=== PATIENT | male | born 1950 | race Caucasian/White ===

== ENCOUNTER 2017-07-08 22:42 | Inpatient (IN) ==
[2017-07-09] MEDS ORDERED: *HR* Heparin 5,000 UNIT/ML VIAL IVP PRN ×2 (01:14)
[2017-07-09] MEDS ORDERED: Acetaminophen 325 MG TABLET PO PRN (01:14)
[2017-07-09] MEDS ORDERED: Naloxone 0.4 MG/ML INJ IVP PRN (01:14)
[2017-07-09] MEDS ORDERED: traMADol 50 MG TABLET PO PRN (01:14)
[2017-07-09] MEDS ORDERED: *HR* Heparin 5,000 UNIT/ML VIAL IVP ONE (01:14)
[2017-07-09] MEDS ORDERED: Heparin 25,000 UNIT/500 ML D5W 25,000 UNIT/500 ML BAG IVC SCH (01:15)
[2017-07-09] MEDS ORDERED: Ipratropium/Albuterol Neb 3 ML IH PRN (01:26)
--- NOTE | 2017-07-09 01:45 | Internal Med History&Physical ---
Date of Encounter: 07/09/17 Time of Encounter: 00:45 Assessment and Plan (1) Pulmonary embolism Current visit: Yes Status: Acute CTA shows PE supplying the proximal divisions of the right upper, middle, and lower lobes. Also mentions diffuse emphysema BNP normal. CBC does show a leukocytosis of 18.6, no anemia. BMP unremarkable. Kidney function appears at baseline Patient denies any chest pain. Initial troponin negative Etiology of PE unclear - will order hypercoagulable panel work-up Patient was started on a heparin drip in the emergency department, we will continue this for now Continue to assess for bleeding. DuoNeb's as needed We will check echocardiogram to evaluate for right heart strain Qualifiers: Pulmonary embolism type: other Chronicity: acute Acute cor pulmonale presence: without acute cor pulmonale Qualified Code(s): I26.99 - Other pulmonary embolism without acute cor pulmonale (2) Hypertension Current visit: Yes Status: Acute Normotensive now. Home meds have not been confirmed, therefore will place on PRN hydralazine Qualifiers: Hypertension type: essential hypertension Qualified Code(s): I10 - Essential (primary) hypertension (3) DVT prophylaxis Current visit: Yes Status: Acute On heparin drip Internal Medicine - H&P: HPI Chief complaint: Dyspnea Admitted From: Emergency Dept History of present illness: Mr. Cherry is a 67 year old male with past medical history of hypertension and asthma, who presented to the emergency department at the request of his primary care physician after finding an elevated d-dimer 5334. The patient reports that he has been feeling short of breath and had a nonproductive cough since November 2016, but this acutely worsened over the past week. He reports an episode last night where he was having palpitations, heavy breathing, chills, and diaphoresis. These symptoms subsided after several minutes. He states his breathing has been worse with exertion. He has tried nebulizers and Advair with minimal relief. He denies hemoptysis, extremity edema, or tenderness in his extremities. He denies fevers, syncope, lightheadedness, chest pain, pleuritic pain, abdominal pain, nausea, vomiting, change in bowels, hematochezia , melena, dysuria, or hematuria. He denies any prolonged immobility, recent surgery, travel, previous clots/clotting disorders, FH of clotting disorders, or active malignancy. He does have cardiac risk factors with history of hypertension, former tobacco use, and family history of heart disease. Past Med Surg Social Fam HX - Past Medical History Medical history: asthma, hypertension Psychiatric history: no psych history - Social History Smoking Status: Former smoker Smokeless Tobacco Status: No Alcohol use: none Drug use: none Internal Medicine - H&P: Meds Albuterol Sulfate [Albuterol Inhaler] 1 puff IH Q4-6H PRN 05/30/17 [History] Metoprolol [Lopressor] 50 mg PO DAILY 05/30/17 [History] Mometasone/Formoterol [Dulera 100 Mcg/5 Mcg Inhaler] 2 inh IH BID 05/30/17 [ History] Potassium Chloride [Klor-Con Sprinkle] 10 meq PO Q48H 05/30/17 [History] hydroCHLOROthiazide [Hydrochlorothiazide] 25 mg PO DAILY 05/30/17 [History] 3 Allergy/AdvReac Type Severity Reaction Status Date / Time amlodipine Allergy Hives Verified 05/30/17 19:40 Benzonatate AdvReac Redness of Verified 05/30/17 19:40 Skin All Systems PM: A 10-system review of systems was performed and is negative for pertinent findings except as documented above in the HPI. - Constitutional Vitals: Temp Pulse Resp BP Pulse Ox 99.8 F H 76 16 128/84 94 07/09/17 01:22 07/09/17 01:22 07/09/17 01:22 07/09/17 01:22 07/09/17 01:22 General appearance: Present: A&O X 3, no acute distress, answers questions appropriately - Head Head exam: Present: atraumatic, normocephalic - Eye Eye exam: Present: EOMI, PERRL, conjuntiva pink, sclera anicteric Pupils: Present: PERRL - Neck Neck exam general surgery: Present: supple, trachea midline. Absent: lymphadenopathy - Respiratory Respiratory exam: Present: CTAB. Absent: accessory muscle use, rales, rhonchi, wheezes - Cardiovascular Cardiovascular exam: Present: RRR, +S1, +S2. Absent: diastolic murmur, systolic murmur - GI/Abdominal GI/Abdominal exam: Present: normal bowel sounds, soft, no peritoneal signs. Absent: distended, tenderness - Extremities Exam Extremities exam: Present: warm, radial pulses palpable and symmetrical. Absent : calf tenderness, cyanotic, pedal edema - Neurological Exam Neurological exam: Present: CN II-XII intact, oriented X3, no focal deficits. Absent: facial droop, speech deficit - Skin Skin exam: Present: dry, intact Internal Med - H&P Results - Labs CBC & Chem 7: 07/09/17 01:50 07/09/17 01:50
[2017-07-09 02:04] LABS: Hematocrit 39.8 % (37.5-50.1); Hemoglobin 13.8 g/dL (12.9-16.9); Mean Corpuscular HGB Conc 34.7 g/dL (31.6-35.5); Mean Corpuscular Hemoglobin 30.7 pg (28.0-33.3); Mean Corpuscular Volume 88.4 fL (83.0-100.0); Mean Platelet Volume 9.6 fL (9.4-12.4); Platelet Count 252 K/mcL (140-400)
[2017-07-09 02:09] LABS: INR 1.3; Prothrombin Time 14.2 Seconds (9.4-12.1)
[2017-07-09 02:12] LABS: Activated Partial Thrombo Time 79.5 Seconds (26.0-36.0)
[2017-07-09] MEDS ORDERED: hydrALAZINE 10 MG TABLET PO PRN (02:21)
[2017-07-09 02:23] LABS: BUN/Creatinine Ratio 10 (6-26); Blood Urea Nitrogen 9 mg/dL (8-23); Carbon Dioxide 22 mEq/L (23-29); Chloride 103 mEq/L (98-107); Chol/HDL Ratio 3.3 (0-4.9); Cholesterol 113 mg/dL (< 200); Glucose 126 mg/dL (70-105); HDL Cholesterol 34 mg/dL (40-59); LDL Cholesterol,Calculated 66 mg/dL (0-99); Osmolality,Calculated 274 (280-300); Potassium 3.3 mEq/L (3.5-5.1); Sodium 132 mEq/L (136-145); Triglycerides 67 mg/dL (< 150); eGFR For African Americans > 60 (> 60); eGFR For Non-African Americans > 60 (> 60)
[2017-07-09 02:24] LABS: Troponin I 0.03 ng/mL (< 0.04)
[2017-07-09] MEDS: *HR* Enoxaparin 120 MG/0.8 ML SYRINGE SQ SCH (17:05)
--- NOTE | 2017-07-09 20:16 | Event Note ---
Date of Encounter: 07/09/17 Time of Encounter: 20:12 S: Patient had no acute events overnight after admission. He states that he is feeling much better. He denies any chest pain, SOB, fever, or chills. He states that SW is planning to meet with him after discussing with his insurance on what medications are covered. O: Vitals - Temp 98.2 degrees F, HR 70, RR 15, BP 124/76, O2 sat 94% on RA Gen - Awake, alert, well-nourished, no acute distress HEENT - NCAT, PERRLA, EOMI, hearing grossly intact, oropharynx benign Resp - Normal WOB, CTAB, no W/R/R CV - RRR, normal S1 and S2, no M/R/G, no BLE edema GI - Soft, NT/ND, no masses, normal bowel sounds, no HSP Skin - Warm, dry, no rashes/lesions/ulcers Psych - Normal mood and affect, no depression or anxiety A/P: 1) Pulmonary Embolism - Asymptomatic now. Discontinue heparin drip and start weight-based lovenox in case needs to be bridged to coumadin. KIERA working on determining medication coverage. Will consider NOAC if covered. 2) HTN - Normotensive. Restarted home amlodipine. Continue PRN hydralazine. 3) DVT Prophylaxis - Lovenox as per above.
[2017-07-09] MEDS: amLODIPine 5 MG TABLET PO SCH (20:40)
[2017-07-09] MEDS: Budesonide/Formoterol 80/4.5 MDI IH SCH (21:53)
[2017-07-10] MEDS: *HR* Enoxaparin 120 MG/0.8 ML SYRINGE SQ SCH (05:49)
[2017-07-10 05:59] LABS: Basophils # 0.1 K/mcL (0.0-0.2); Basophils % 0.6 %; Eosinophils % 0.2 %; Hemoglobin 13.4 g/dL (12.9-16.9); Immature Granulocytes % 0.6 % (0-4); Lymphocytes # 1.9 K/mcL (0.6-4.6); Lymphocytes % 15.4 %; Mean Corpuscular HGB Conc 34.4 g/dL (31.6-35.5); Mean Corpuscular Hemoglobin 30.9 pg (28.0-33.3); Mean Corpuscular Volume 89.9 fL (83.0-100.0); Monocytes # 1.5 K/mcL (0.0-1.3); Monocytes % 12.6 %; Neutrophils # 8.5 K/mcL (1.6-8.9); Platelet Count 269 K/mcL (140-400); Red Blood Count 4.34 M/mcL (4.19-5.50); Red Cell Distribution Width 12.8 % (11.5-14.5); Segmented Neutrophils % 70.6 %
[2017-07-10 06:16] LABS: BUN/Creatinine Ratio 13 (6-26); Blood Urea Nitrogen 11 mg/dL (8-23); Calcium 8.8 mg/dL (8.6-10.3); Carbon Dioxide 22 mEq/L (23-29); Chloride 103 mEq/L (98-107); Glucose 99 mg/dL (70-105); Osmolality,Calculated 275 (280-300); Potassium 3.4 mEq/L (3.5-5.1); Sodium 133 mEq/L (136-145); eGFR For African Americans > 60 (> 60); eGFR For Non-African Americans > 60 (> 60)
[2017-07-10] MEDS: Budesonide/Formoterol 80/4.5 MDI IH SCH (07:25)
[2017-07-10] MEDS: amLODIPine 5 MG TABLET PO SCH (08:39)
[2017-07-10] MEDS ORDERED: Furosemide 20 MG TABLET PO SCH (09:00)
[2017-07-10 11:36] VITALS: BP 114/76
--- NOTE | 2017-07-10 12:48 | Discharge Summary ---
- NOTES TO OUTPATIENT PROVIDER Notes to Outpatient Provider: Follow up with PCP in 2-3 days after discharge. Will need prescription for maintenance dose of xarelto. Recheck BMP at follow up (hypokalemia). Please address anxiety at follow up. Orders not resulted at time of discharge: Pending orders 07/09/17 08:58 Antithrombin III, Activity Routine Factor V Leiden Routine Homocysteine Routine Lupus Anticoagulant Panel Routine Protein C Antigen, Total Routine Protein C, Functional Routine Protein S Antigen, Total Routine Protein S, Functional Routine Prothrombin [id number] Mutation Routine Date of Encounter: 07/10/17 Time of Encounter: 12:46 - Discharge Diagnosis (1) Pulmonary embolism Priority: Primary Status: Acute Qualifiers: Pulmonary embolism type: other Chronicity: acute Acute cor pulmonale presence: without acute cor pulmonale Qualified Code(s): I26.99 - Other pulmonary embolism without acute cor pulmonale (2) Anxiety Priority: Secondary Status: Acute (3) Hypertension Priority: Secondary Status: Chronic Qualifiers: Hypertension type: essential hypertension Qualified Code(s): I10 - Essential (primary) hypertension (4) DVT prophylaxis Priority: Secondary Status: Acute Hospital course: Mr. Cherry is a 67 year old male admitted for pulmonary embolism. He was admitted to general medical floor with telemetry. He was started on heparin drip. SOB improved the next day. He was transitioned to SQ lovenox. SW was consulted to see what medications his insurance would cover. He will be discharged on xarelto. He had some anxiety on day of discharged, and he states that this has been a chronic issue for him. Anxiety was controlled with PRN vistaril. He will address long-term management of his anxiety with his PCP. He has no complaints on day of discharge. He received KCl for mild borderline hypokalemia. He will follow up with PCP in 2-3 days after discharge. BMP can be rechecked at this time. Patient has met maximum benefit of this hospitalization and will be discharged home in stable condition. Discharge discussed with: patient, nurse, social work, other (Pharmacist) - Time Spent with Patient Total time spent providing and/or coordinating discharge services: Greater than 30 minutes - Discharge Medications Home Medications: Amlodipine Besylate 2.5 mg PO BID 07/09/17 [History] Fluticasone/Salmeterol [Advair 250-50 Diskus] 1 puff IH BID 07/09/17 [History] Furosemide [Lasix] 20 mg PO DAILY 07/09/17 [History] Ipratropium/Albuterol Neb [Duoneb] 3 ml IH Q4H 07/09/17 [History] Montelukast [Singulair] 10 mg PO DAILY 07/09/17 [History] Rivaroxaban [Xarelto] 15 mg PO Q12H 21 Days #42 tablet 07/09/17 [Rx] Allergies/Adverse Reactions: 3 Allergy/AdvReac Type Severity Reaction Status Date / Time amlodipine Allergy Hives Verified 05/30/17 19:40 Benzonatate AdvReac Redness of Verified 07/09/17 08:43 Skin Date of admission: 07/09/17 19:50 Primary care physician: Edgar Malhotra MD Discharging clinician: Ezekiel Aguayo Anticipated date of discharge: 07/10/17 - Constitutional Vitals: Temp Pulse Resp BP Pulse Ox 98.2 F 94 16 114/76 93 07/10/17 11:35 07/10/17 11:35 07/10/17 11:35 07/10/17 11:35 07/10/17 11:35 General appearance: Present: cooperative, A&O X 3, pleasant, no acute distress, answers questions appropriately - Respiratory Respiratory exam: Present: CTAB. Absent: accessory muscle use, rales, rhonchi, wheezes Additional comments: Normal WOB - Cardiovascular Cardiovascular exam: Present: RRR, +S1, +S2. Absent: diastolic murmur, gallop, rubs, systolic murmur Additional comments: No BLE edema - GI/Abdominal GI/Abdominal exam: Present: normal bowel sounds, soft. Absent: distended, hepatomegaly, mass, splenomegaly, tenderness - Psychiatric Psychiatric exam: Present: normal affect, normal mood. Absent: anxious, depressed - Skin Skin exam: Present: dry, intact, warm. Absent: cyanosis, rash - Patient Status Disposition: Home, Self-Care Condition: Good Functional capacity at discharge: independent ambulation Overall status at discharge: patient is back to baseline - Discharge Instructions Follow Up With: Edgar Malhotra MD [Primary Care Provider] - Additional Instructions: Follow up with PCP in 2-3 days after discharge. Will need prescription for maintenance dose of xarelto. Recheck BMP at follow up (hypokalemia). Please address anxiety at follow up. - Diet and Activity Activity: resume usual activities as tolerated Diet: low fat, low cholesterol, low salt diet, other (Cardiac)
[2017-07-11 18:54] LABS: APTT (LE Anticoag) 103 sec (32-48); Diluted Russell Viper Venom 32 sec (33-44); LE APTT D Heparin Neutralized 50 sec (32-48); LE Coag APTT Mixing 48 sec (32-48); LE Coag Reptilase Time 17.2 sec (<=21.9); PT (LE-Anticoag) 15.6 sec (12.0-15.5)
[2017-07-13 22:48] LABS: FACV Specimen WHOLE BLOOD
[2017-07-15 07:46] LABS: Fac V Leiden R506Q Mut Result NEGATIVE
[2017-07-15 18:13] LABS: Prothrombin G20210A Specimen WHOLE BLOOD
[2017-07-16 08:37] LABS: Prothrombin G20210A Mut Result NEGATIVE
== END 2017-07-10 14:50 | disposition home or self-care (01) | DRG 176 ==
LOC: 2ANU
PROVIDERS: ADMIT Internal Medicine Nephrology; ATTEND Internal Medicine

== ENCOUNTER 2020-12-01 03:54 | Observation (INO) ==
[2020-12-01] MEDS ORDERED: 0.9 % Sodium Chloride 2,000 ML IVC SCH ×2 (07:45→10:58)
[2020-12-01] MEDS ORDERED: CefOXitin 1,000 MG VIAL ONE (07:52)
[2020-12-01] MEDS ORDERED: Ondansetron 4 MG/2 ML VIAL ONE (07:54)
[2020-12-01] MEDS ORDERED: *HR* FentaNYL (PF) 100 MCG/2 ML VIAL ONE (07:54)
[2020-12-01] MEDS ORDERED: *HR* Rocuronium Bromide 50 MG/5 ML VIAL ONE (07:54)
[2020-12-01] MEDS ORDERED: *HR* Midazolam HCl 2 MG/2 ML VIAL ONE (07:54)
[2020-12-01] MEDS ORDERED: *HR* Succinylcholine 200 MG/10 ML VIAL IVP ONE (07:54)
[2020-12-01] MEDS ORDERED: Lidocaine HCL 4 ML Topical Solution (Laryng-O-Jet Kit Sterile Pak) TP ONE (07:54)
[2020-12-01] MEDS ORDERED: Lidocaine -MPF 2% 2 ML VIAL ONE (07:54)
[2020-12-01] MEDS ORDERED: *HR* Propofol 200 MG/20 ML VIAL IVP ONE (07:54)
[2020-12-01] MEDS ORDERED: Ondansetron 4 MG/2 ML VIAL IVP PRN ×4 (08:14→10:58)
[2020-12-01] MEDS ORDERED: Naloxone 0.4 MG/ML INJ IVP PRN ×2 (08:14→10:58)
[2020-12-01] MEDS ORDERED: *HR* HYDROmorphone (PF) 1 MG/ML SYRINGE ONE (10:13)
[2020-12-01] MEDS ORDERED: *HR* FentaNYL (PF) 100 MCG/2 ML VIAL IVP PRN (10:22)
[2020-12-01] MEDS ORDERED: *HR* HYDROmorphone PF 0.5 MG/0.5 ML SYRINGE IVP PRN (10:22)
[2020-12-01] MEDS ORDERED: *HR* Metoprolol 5 MG/5 ML VIAL IVP PRN (10:58)
[2020-12-01] MEDS ORDERED: *HR* OxyCODONE/APAP 5/325 TABLET PO PRN (10:58)
[2020-12-01 11:19] LABS: Basophils % 0.1 %; Hematocrit 43.7 % (37.5-50.1); Hemoglobin 14.9 g/dL (12.9-16.9); Immature Granulocytes % 0.5 % (0-4); Lymphocytes # 0.6 K/mcL (0.6-4.6); Lymphocytes % 6.9 %; Mean Corpuscular HGB Conc 34.1 g/dL (31.6-35.5); Mean Corpuscular Hemoglobin 29.6 pg (28.0-33.3); Mean Corpuscular Volume 86.7 fL (83.0-100.0); Mean Platelet Volume 9.2 fL (9.4-12.4); Monocytes # 0.3 K/mcL (0.0-1.3); Monocytes % 3.4 %; Neutrophils # 8.2 K/mcL (1.6-8.9); Platelet Count 234 K/mcL (140-400); Red Blood Count 5.04 M/mcL (4.19-5.50); Red Cell Distribution Width 13.1 % (11.5-14.5); Segmented Neutrophils % 89.1 %; White Blood Count 9.2 K/mcL (4.3-11.1)
[2020-12-01 11:29] LABS: Prothrombin Time 22.5 Seconds (9.4-12.1)
[2020-12-01 11:38] LABS: Alanine Aminotransferase 11 Units/L (7-52); Albumin 3.3 g/dL (3.5-5.7); Alkaline Phosphatase 90 Units/L (34-104); Aspartate Amino Transferase 15 Units/L (13-39); BUN/Creatinine Ratio 15 (6-26); Blood Urea Nitrogen 11 mg/dL (8-23); Calcium 8.8 mg/dL (8.6-10.3); Carbon Dioxide 26 mEq/L (23-29); Chloride 103 mEq/L (98-107); Globulin 3.4 g/dL (2.4-3.5); Glucose 112 mg/dL (70-105); Magnesium 1.8 mg/dL (1.6-2.6); Osmolality,Calculated 282 (280-300); Sodium 136 mEq/L (136-145); Total Protein 6.7 g/dL (6.4-8.9); eGFR For African Americans > 60 (> 60); eGFR For Non-African Americans > 60 (> 60)
[2020-12-01] MEDS: 0.9 % Sodium Chloride 1,000 ML IVC SCH ×2 (12:15→23:20)
[2020-12-01] MEDS: CeFAZolin 2 GM/120 ML BAG IVPB SCH ×2 (16:30→23:19)
[2020-12-01] MEDS: Budesonide/Formoterol 80/4.5 1 PUFF INH IH SCH (20:13)
[2020-12-02 01:35] LABS: Prothrombin Time 22.8 Seconds (9.4-12.1)
[2020-12-02 07:03] VITALS: BP 135/84; PULSE 68; TEMP 97.8; O2SAT 93
[2020-12-02] MEDS: Budesonide/Formoterol 80/4.5 1 PUFF INH IH SCH (07:23)
[2020-12-02] MEDS ORDERED: Ibuprofen 800 MG TABLET PO ONE (09:54)
[2020-12-02] MEDS ORDERED: *HR* Warfarin 5 MG TABLET PO ONE (18:00)
[2020-12-02] MEDS ORDERED: Warfarin perPT PO PRN (18:00)
== END 2020-12-02 11:55 | disposition home or self-care (01) ==
LOC: 3BNU
PROVIDERS: ADMIT Internal Medicine; ATTEND Internal Medicine